=== PATIENT | male | born 1965 | race Caucasian/White ===

== ENCOUNTER → 2019-02-05 | Outpatient (CLI) | payer OTHER | LOC: ULTRA 09:39 | DX: N43.3 Hydrocele, unspecified (principal) ==

== ENCOUNTER → 2020-12-22 | Outpatient (CLI) | payer OTHER | LOC: ULTRA 09:33 | PROVIDERS: ATTEND Family Medicine | DX: R22.40 Localized swelling, mass and lump, unspecified lower limb (principal) ==